=== PATIENT | female | born 1975 | race African-American/Black ===

== ENCOUNTER 2021-08-09 06:06 | Inpatient (IN) | payer OTHER ==
[~2021-08-09] VITALS: Ht 157.5 cm; Wt 70.0 kg
[~2021-08-09 06:06] MED LIST: CETI-36 PO; IRON65TA2 PO; LR 1,000 ML IV ONE; POTA20TA6 PO; TRIA37.5 PO; ceFAZolin SOD 2 GM in IV 1 EA IV ONE
[2021-08-09 07:15] LABS: BASO # 0.1 10^3/uL (0.0-0.2); EOS # 0.1 10^3/uL (0.0-0.5); EOS % 2.2 % (0.0-3.0); HEMATOCRIT 37.7 % (36.0-47.0); HEMOGLOBIN 12.1 g/dl (12.0-15.5); LYMPH # 2.2 10^3/uL (1.5-5.0); LYMPH % 43.2 % (24.0-44.0); MEAN CORPUSCULAR HEMOGLOBIN 25.5 pg (27.0-33.0); MEAN CORPUSCULAR HGB CONC 32.1 g/dl (32.0-36.5); MEAN CORPUSCULAR VOLUME 79.5 fl (80.0-96.0); MONO # 0.5 10^3/uL (0.0-0.8); MONO % 9.6 % (2.0-8.0); NEUTROPHILS # 2.2 10^3/uL (1.5-8.5); NEUTROPHILS % 43.8 % (36.0-66.0); PLATELET COUNT, AUTOMATED 429 10^3/uL (150-450); RED BLOOD COUNT 4.74 10^6/uL (4.00-5.40); WHITE BLOOD COUNT 5.1 10^3/uL (4.0-10.0)
[2021-08-09] MEDS ORDERED: BUPIVACAINE HCL 0.5% 30 ML VIAL As Ordered ONE (07:18)
[2021-08-09 07:21] LABS: ALBUMIN 3.7 GM/DL (3.2-5.2); ALT/SGPT 21 U/L (12-78); BILIRUBIN,TOTAL 0.4 MG/DL (0.2-1.0); BLOOD UREA NITROGEN 15 MG/DL (7-18); CALCIUM LEVEL 9.3 MG/DL (8.5-10.1); CARBON DIOXIDE LEVEL 28 MEQ/L (21-32); CHLORIDE LEVEL 105 MEQ/L (98-107); CREATININE FOR GFR 1.08 MG/DL (0.55-1.30); GLOMERULAR FILTRATION RATE > 60.0 (>58); GLUCOSE, FASTING 102 MG/DL (70-100); POTASSIUM SERUM 3.3 MEQ/L (3.5-5.1); SODIUM LEVEL 139 MEQ/L (136-145); TOTAL PROTEIN 7.6 GM/DL (6.4-8.2)
[2021-08-09] MEDS ORDERED: propofoL 200 MG/20 ML VIAL As Ordered ONE (07:22)
[2021-08-09] MEDS ORDERED: ROCURONIUM BROMIDE 50 MG/5 ML VIAL As Ordered ONE (07:22)
[2021-08-09] MEDS ORDERED: LIDOCAINE 2% 100MG/5ML SDV (FOR ANES.) As Ordered ONE (07:22)
[2021-08-09] MEDS ORDERED: dexameTHASONE 4 MG/ML 1ML VIAL (J1100 PER 1MG) As Ordered ONE (07:22)
[2021-08-09 07:23] LABS: HCG, SERUM QUALITATIVE NEGATIVE (NEGATIVE)
[2021-08-09] MEDS ORDERED: fentaNYL 250 MCG/5 ML INJECTION (J3010) As Ordered ONE (07:23)
[2021-08-09] MEDS ORDERED: MIDAZOLAM INJ 2MG/2ML VIAL (J2250 PER 1MG) As Ordered ONE (07:23)
[2021-08-09] MEDS ORDERED: LACRILUBE (AKWA TEARS) OPHTH OINT 3.5 GM As Ordered ONE (07:51)
[2021-08-09] MEDS ORDERED: LIDOCAINE 2% JELLY 5ML TUBE As Ordered ONE (07:58)
[2021-08-09] MEDS ORDERED: ACETAMINOPHEN 1000MG 100ML IV BTL (OFIRMEV) (J0131 PER 10MG) As Ordered ONE (08:23)
[2021-08-09] MEDS ORDERED: SUGAMMADEX SODIUM 500 MG/5 ML VIAL (BRIDION) As Ordered ONE (08:23)
[2021-08-09] MEDS ORDERED: HYDROmorphone HCL 2 MG/ML 1ML VIAL (J1170) As Ordered ONE (08:23)
[2021-08-09] MEDS ORDERED: ONDANSETRON 4MG/2ML VIAL As Ordered ONE (08:27)
[2021-08-09] MEDS ORDERED: ePHEDrine SULFATE 25 MG/5 ML(5MG/ML) SYRINGE As Ordered ONE (08:41)
[2021-08-09] MEDS ORDERED: PROMETHAZINE INJ 25 MG/ML VIAL (J2550) IV PRN (11:25)
[2021-08-09] MEDS ORDERED: ONDANSETRON 4 MG TAB PO PRN (11:30)
[2021-08-09] MEDS ORDERED: ACETAMINOPHEN 500 MG TAB PO PRN (11:30)
[2021-08-09] MEDS ORDERED: oxyCODONE 5MG TAB PO PRN ×2 (11:30)
[2021-08-09] MEDS ORDERED: MORPHINE 2 MG/ML 1ML VIAL (J2270) IV PRN (11:30)
[2021-08-09] MEDS ORDERED: SIMETHICONE 80MG CHEW TAB PO PRN (11:30)
[2021-08-09] MEDS ORDERED: ACETAMINOPHEN TAB 650MG DOSE (2X325MG) PO PRN (11:30)
[2021-08-09] MEDS: LR 1,000 ML IV SCH ×2 (12:07→23:02)
[2021-08-09] MEDS: KETOROLAC 30 MG/ML 1ML VIAL IV SCH ×3 (12:08→23:08)
[2021-08-09 13:50] VITALS: BP 153/89
--- NOTE | 2021-08-09 14:01 | ROOPDOC ---
[facility] Report Of Operation Report of Operation DATE OF PROCEDURE: 08/09/21 PREPROCEDURE DIAGNOSES: Heavy menstrual bleeding (menorrhagia), Multi-fibroid uterus POSTPROCEDURE DIAGNOSES: Same as above PROCEDURE PERFORMED: Diagnostic laparoscopy, total abdominal hysterectomy with bilateral salpingectomy, cystoscopy SURGEON: Anjum Murray DO, FACOG CLAM GROWER: Len Guerra DO ANESTHESIA: General ESTIMATED BLOOD LOSS: 500 ml IV FLUIDS: Pending URINE OUTPUT: 150 ml clear urine via mcgrath catheter ANTIBIOTICS: 2 grams Ancef before case start COMPLICATIONS: None FINDINGS: Normal appearing liver, gallbladder, gastric curve. Significantly enlarged multi-fibroid uterus. Severe bladder adhesions to lower uterine segment. Normal fallopian tubes and normal ovaries bilaterally. Cystoscopy at conclusion of hysterectomy demonstrated an intact bladder with no lesions, defects, sutures, or injury. Brisk efflux of urine seen from each ureteral orifice. SPECIMENS REMOVED: Uterus, cervix, bilateral fallopian tubes. DESCRIPTION OF PROCEDURE: The risks, benefits, indications, and alternatives of the procedure were reviewed with the patient and informed consent was obtained. The patient was taken to the operating room where general anesthesia was obtained without difficulty. The patient was then placed in the lithotomy position using Gel padded Andrea Stirrups. An exam under anesthesia was then performed and significant for a midline, mobile, 12 week sized uterus with multiple prominences consistent with fibroids. An abdominal and vaginal prep were then performed in the usual, sterile fashion and a mcgrath catheter was placed. Plan was to attempt with laparoscopy. A sterile speculum was inserted into the vagina and the cervix was visualized. An 0-vicryl stitch was placed at the anterior lip of the cervix for traction. The uterus was sounded to 10cm. A PrimeSense-[employer] uterine manipulator was then inserted as a means to manipulate the uterus. The speculum was removed. Gloves were then exchanged and attention was turned to the patient's abdomen where a 5mm skin incision was made in the inferior aspect of the umbilicus after injection of marcaine. A 5mm trocar and sleeve were then carefully introduced into the peritoneal cavity at a 90 degree angle while tenting up the abdominal wall. Intraperitoneal placement was confirmed under direct visualization and entry pressure was noted to be <5mmHg. Inspection of the structures immediately beneath the trocar entry site revealed no injury. A survey of the patient's abdomen revealed a normal liver, gallbladder, and gastric curve. The uterus was noted to be significantly enlarged with multiple fibroids extending anteriorly and laterally on both sides. A large fibroid was noted at the lower uterine segment, obstructing the full view of the bladder reflection. There was noted to be severe adhesions of the bladder to the lower uterine segment. The decision was made to proceed with laparotomy. The gas was turned off and all CO2 was removed from the patient's abdomen. The trocar was removed under direct visualization and there was no bleeding seen at the trocar site. The infraumbilical skin incision was then closed with 4-0 monocryl suture. A Pfannenstiel skin incision was then made and carried down to the underlying layer of fascia using bovie electrocautery. The fascia was entered with Bovie cautery and extended bilaterally with oconnor scissors. The underlying rectus fascia and muscle layers were then in the midline and the peritoneum was identified, grasped with two hemostats, and entered sharply using Metzenbaum scissors. The peritoneal incision was then extended superiorly and inferiorly using Bovie cautery. Manual and visual examination of the pelvis was notable for a enlarged multi- fibroid uterus with severe adhesions of the bladder to the lower uterine segment. The bowel was then packed from the operating field using moist laps. A Mobius self-retaining retractor was then placed into the abdominal cavity for pelvic exposure. Two clamps were placed across each utero-ovarian ligament immediately lateral to the uterus, and the uterus was elevated to the level of the incision. The fallopian tubes were first isolated and grasped with nadege clamps. Using the handheld Ligasure, the fallopian tubes were grasped, cauterized, and then transected. The fallopian tubes were then amputated at their connection to the uterus and sent off the field. Hemostasis was assured throughout this process. The round ligaments were bilaterally grasped near the uterine cornua. The round ligaments were then suture ligated with O-vicryl and transected using electrocautery bilaterally, allowing entry into the broad ligament. The anterior leaves of the broad ligament were then incised along the bladder reflection on both sides to the midline, and the posterior leaves of the broad ligament were incised 1-2 cm inferiorly. The pararectal spaces were then developed, and the ureters were identified bilaterally. A window was created in an avascular plane of the broad ligament, below and parallel to the IP ligament, and above the ureter. The utero-ovarian ligaments were then doubly clamped as close as possible to the uterine corpus, ligated, and transected with the handheld ligasure. The pedicles were reinspected and hemostasis noted. The bladder was then gently dissected off the lower uterine segment and cervix using a sponge stick and metzenbaum scissors until the endopelvic fascia was visualized. There was severe scarring at this location that added 20 minutes of dissection time to the case. The uterine arteries were then identified along the lateral aspects of the uterus at the level of the isthmus and skeletonized. The uterine arteries were then doubly clamped, ligated, and transected on both sides using the handheld ligasure. There was noted to be areas of aberrant vasculature on both secondary to the uterine fibroids which required additional sutures to achieve hemostasis. The cardinal ligaments were then clamped, transected, and suture ligated bilaterally. Finally, the uterosacral ligaments were clamped, transected, and suture ligated bilaterally. Hemostasis was noted. Given the size and bulk of the uterus, the decision was made to proceed with fundal amputation of the uterus. The uterine fundus was sharply amputated from the isthmus and cervix and the multi-lobular uterus was freed from the pelvis. The V-Care manipulator balloon was noted to be protruding through the cervix and this was deflated while maintaining sterility. The V-Care colpotomy ring encircled the remainder of the cervix. Using the colpotomy ring as a guide, the cervix was then incised circumferentially using bovie electrocautery. The V-Care uterine manipulator was then removed by the health information technician taking the cervical stump with it. The cuff was then grasped at the anterior and posterior sides with jaimie clamps. The lateral cuff angles were then closed with 0- vicryl suture and tagged. The remainder of the cuff was closed using O-vicryl suture in a running fashion with care given to incorporate the anterior pubocervical fascia and the posterior rectovaginal fascia. There was oozing at the cuff after closure that was controlled with figure of eight sutures of 0- vicryl. Inspection revealed hemostasis. Attention was then turned below for cystoscopy. The patient's mcgrath catheter was removed. The cystoscope was primed. The cystoscope was then advanced into the bladder. After distention of the bladder with warm saline, a systematic examination of the bladder was performed. There were no lesions, defects, sutures, or injury noted throughout inspection of the bladder. Brisk efflux of urine was seen from each ureteral orifice. The cystocope was then removed and the patient's mcgrath catheter was replaced. Gloves were then exchanged and attention was turned back to the abdomen. The abdomen was copiously irrigated with warm saline. All pedicles were carefully inspected and were noted to be hemostatic. The vaginal cuff was inspected again and was noted to be hemostatic. Tisseel fibrin sealant was then applied to the vaginal cuff and operative pedicles. All packing and instruments were then removed from the abdomen. The fascia was reapproximated using O-vicryl suture in a running fashion. The subcutaneous tissue was reapproximated using 3-0 vicryl suture in a running fashion. The skin was closed with 4-0 monocryl suture in a running fashion. Steri strips were then applied to the incision and an optifoam dressing was placed. A manual exam was then performed at case conclusion and the vagina demonstrated excellent suspension, elevation, and hemostasis. A vaginal sweep was performed and confirmed no retained foreign objects remained in the vagina. At the completion of the case the sponge, lap, needle, and instrument counts were correct x2. The patient was taken to the PACU in stable condition. ANJUM MURRAY DO Aug 09, 2021 14:01
[2021-08-09 14:18] VITALS: BP 147/87
[2021-08-09] MEDS: POTASSIUM CHLORIDE 10 MEQ SR TABLET PO SCH (14:36)
[2021-08-09 15:25] VITALS: BP 152/91
--- NOTE | 2021-08-09 15:34 | IPNPDOC ---
Text Note Date of Service The patient was seen on 08/09/21. NOTE Patient seen this afternoon. Ms. Way reports feeling well. She is resting in bed. Pain is manageable. She is tolerating a regular diet and denies any nausea. Vitals - VSS, afebrile, normal to mildly elevated BP, HR 80s-90s General - Sitting up in bed, AAOX3, NAD, pleasant and conversant Extremities - SCDs in place UO - appropriate Ms. Way is doing well s/p Dx Laparoscopy and then MISTY, BS, cysto ~4 hours ago. Will maintain mcgrath catheter until tomorrow AM due to extensive adhesiolysis required from bladder to lower uterine segment. Encourage ambulation this evening. Regular diet. Pain meds ordered. Plan for CBC, CMP tomorrow AM with mcgrath removal and DTV. Home meds ordered to start tomorrow AM. If BP severely elevated tonight she may require treatment. All patient questions answered. Pavel Maria, I+O VSPavel, I+O Laboratory Tests 08/09/21 06:29 Vital Signs Date Time Temp Pulse Resp B/P (MAP) Pulse Ox O2 Delivery O2 Flow Rate FiO2 08/09/21 14:18 98.0 86 18 147/87 (107) 100 Room Air 08/09/21 11:45 3.0 HAROON MURRAY DO Aug 09, 2021 15:34
[2021-08-09 16:58] VITALS: BP 149/90
[2021-08-09 18:04] VITALS: BP 154/72
[2021-08-09 22:00] VITALS: BP 150/78
[2021-08-10] VITALS (7 sets, daily range): BP systolic 130–142; BP diastolic 60–88
[2021-08-10] MEDS: LR 1,000 ML IV SCH (05:53)
[2021-08-10] MEDS: KETOROLAC 30 MG/ML 1ML VIAL IV SCH (05:54)
[2021-08-10 06:58] LABS: BASO % 0.2 % (0.0-1.0); HEMATOCRIT 28.7 % (36.0-47.0); LYMPH # 2.1 10^3/uL (1.5-5.0); LYMPH % 21.9 % (24.0-44.0); MEAN CORPUSCULAR HEMOGLOBIN 25.8 pg (27.0-33.0); MEAN CORPUSCULAR HGB CONC 32.4 g/dl (32.0-36.5); MEAN CORPUSCULAR VOLUME 79.7 fl (80.0-96.0); MONO # 0.7 10^3/uL (0.0-0.8); MONO % 7.6 % (2.0-8.0); NEUTROPHILS # 6.8 10^3/uL (1.5-8.5); NEUTROPHILS % 69.9 % (36.0-66.0); PLATELET COUNT, AUTOMATED 335 10^3/uL (150-450); WHITE BLOOD COUNT 9.8 10^3/uL (4.0-10.0)
[2021-08-10 07:06] LABS: HEMOGLOBIN 9.3 g/dl (12.0-15.5)
[2021-08-10 07:30] LABS: ALBUMIN 2.5 GM/DL (3.2-5.2); ALT/SGPT 17 U/L (12-78); BILIRUBIN,TOTAL 0.7 MG/DL (0.2-1.0); BLOOD UREA NITROGEN 9 MG/DL (7-18); CALCIUM LEVEL 8.2 MG/DL (8.5-10.1); CARBON DIOXIDE LEVEL 29 MEQ/L (21-32); CHLORIDE LEVEL 109 MEQ/L (98-107); CREATININE FOR GFR 0.81 MG/DL (0.55-1.30); GLOMERULAR FILTRATION RATE > 60.0 (>58); GLUCOSE, FASTING 96 MG/DL (70-100); POTASSIUM SERUM 3.2 MEQ/L (3.5-5.1); SODIUM LEVEL 142 MEQ/L (136-145); TOTAL PROTEIN 5.7 GM/DL (6.4-8.2)
[2021-08-10] MEDS: POTASSIUM CHLORIDE 10 MEQ SR TABLET PO SCH (09:39)
[2021-08-10] MEDS: DYAZIDE 37.5/25 CAP (TRIAM/HCTZ) PO SCH (09:39)
--- NOTE | 2021-08-10 09:43 | IPNPDOC ---
Text Note Date of Service The patient was seen on 08/10/21. NOTE Patient seen this morning. POD#1 s/p uncomplicated Dx L/S and then MISTY, BS, cysto for menorrhagia and multi-fibroid uterus. EBL ~500ml. No acute events overnight. Ms. Way reports feeling well this AM. Pain is manageable with current pain medication regimen. Has ambulated only a little so far. Is tolerating a regular diet. Denies any fevers/chills, SOB, chest pain. Mcgrath bag in place. Vitals - VSS, afebrile, normal to mildly elevated BP, non tachycardic General - Sitting up in bed, AAOX3, NAD, pleasant and conversant Abdomen - Soft, nondistended. Binder in place. Extremities - SCDs in place UO - Excellent, clear urine via mcgrath catheter Labs: Pre op CBC 5.1>12.1/37.7<429 ---> Post op CBC this AM 9.8>9.3/29.7<335 Pre op BMP 139/3.3--105/28--15/1.08<102 ---> Post op BMP this AM 142/3.2--109/29--9/0.81<[address] is doing well this AM. VSS, UO good, blood work stable. H/H drop consistent with EBL from surgery and fluid replacement. Plan for today to remove mcgrath catheter, ambulate, and monitor for DTV. Continue regular diet and monitor for symptoms of anemia. Transfuse if clinically indicated. Continue routine post op care. Anticipate DC home later today or tomorrow AM if meeting all criteria. All patient questions answered. Pavel Maria I+O Pavel CÁRDENAS I+O Laboratory Tests 08/10/21 06:41 Vital Signs Date Time Temp Pulse Resp B/P (MAP) Pulse Ox O2 Delivery O2 Flow Rate FiO2 08/10/21 06:00 98.7 94 16 142/86 (104) 99 Room Air 08/09/21 11:45 3.0 I&O- Last 24 Hours up to 6 AM 08/10/21 06:00 Intake Total 5260 ml Output Total 3150 ml Balance 2110 ml HAROON MURRAY DO Aug 10, 2021 09:43
[2021-08-10] MEDS ORDERED: LR 1,000 ML IV SCH (10:00)
[2021-08-10] MEDS: IBUPROFEN 800 MG TAB PO SCH ×2 (13:45→21:13)
--- NOTE | 2021-08-10 20:39 | DS.PDOC ---
Discharge Summary General Date of Admission Aug 09, 2021 at 06:06 Date of Discharge Aug 11, 2021 Discharge Summary HOSPITAL COURSE: Ms. Way is a 46 yo female who was admitted to [facility] on 09Aug2021 for a planned hysterectomy. She underwent a diagnostic laparoscopy and then open abdominal hysterectomy with bilateral salpingectomy and cystoscopy on that same day. Her post operative course was unremarkable. On her day of discharge she was meeting all discharge criteria. She was ambulating, voiding, tolerating a regular diet, passing gas, and her pain was well controlled with PO pain medications. DISCHARGE MEDICATIONS: Please see below. ALLERGIES: Please see below. PHYSICAL EXAMINATION ON DISCHARGE: VITAL SIGNS: Please see below. GENERAL: AAOX3, sitting on a chair, NAD, pleasant and conversant CARDIOVASCULAR EXAMINATION: RRR ABDOMINAL EXAMINATION: Soft, nondistended. Incision examined. Optifoam in place over incision. Old dried blood at right lateral edge. Otherwise clean/dry/intact. No tenderness to palpation. EXTREMITIES: No edema PSYCHIATRIC EXAMINATION: Affect appropriate LABORATORY DATA: Please see below. ACTIVITY: Pelvic rest, no heavy lifting for 6 weeks DIET: Regular DISCHARGE PLAN: DC home DISPOSITION: DC home on 11Aug2021 DISCHARGE INSTRUCTIONS: Postoperatively, you should expect significant abdominal soreness. We will provide oral pain medications, typically an anti-inflammatory (motrin and tylenol) and an oral narcotic (oxycodone). It is recommended to take the anti- inflammatory medication three times daily, using the narcotic medication as need ed in addition. Sometimes, narcotic medications can cause constipation, and we recommend using a stool softener (Miralax), drinking plenty of water, increasing the fiber in your diet, and drinking prune juice if constipation becomes a significant issue. Dressings: Your abdominal incision is closed with absorbable stitches and dressed with steri-strips and an optifoam dressing. Remove the optifoam dressing (easy to do while in the shower) 5 days postoperatively. Remove the steri-strips in one week postoperatively. You may shower on the day following surgery. It is normal to have some pain at the incisions that is sharp. Signs of infection at the incision include pain, redness, swelling and drainage of pus from the incision. Precautions: Please contact the [facility] clinic during business hours, the [facility] provider computer numeric control setter after hours, or report to the Emergency Room after hours for any of the following symptoms: * Fever (temperature > 101F) * Significant pain not controlled with oral pain medications * Significant nausea and vomiting with inability to tolerate any food or medication * Significant redness of the incisions or drainage from the incisions Return to normal: You should be able to resume normal activities and exercise within 6-8 weeks. You may notice more soreness with abdominal exercises, and this is to be expected. Avoid heavy lifting greater than 10 pounds until 6 weeks after surgery. Nothing in the vagina (no tampons, intercourse, or douching) for 6-8wks. You may resume sexual activity 6-8 weeks after surgery when cleared by your surgeon. ITEMS TO FOLLOWUP ON ON OUTPATIENT: 1. 2 week post op incision check in the [facility] office. DISCHARGE CONDITION: Stable. TIME SPENT ON DISCHARGE: Greater than 20 minutes. Haroon Shah DO, FACOG Vital Signs/I&Os Vital Signs Date Time Temp Pulse Resp B/P (MAP) Pulse Ox O2 Delivery O2 Flow Rate FiO2 08/10/21 16:00 98.4 89 17 138/68 (91) 99 Room Air 08/09/21 11:45 3.0 I&O- Last 24 Hours up to 6 AM 08/10/21 06:00 Intake Total 5260 ml Output Total 3150 ml Balance 2110 ml Laboratory Data Labs 24H Laboratory Tests 2 08/10/21 06:41: Immature Granulocyte % (Auto) 0.4, Neutrophils (%) (Auto) 69.9H, Lymphocytes (%) (Auto) 21.9L, Monocytes (%) (Auto) 7.6, Eosinophils (%) (Auto) 0.0, Basophils (%) (Auto) 0.2, Neutrophils # (Auto) 6.8, Lymphocytes # (Auto) 2.1, Monocytes # (Auto) 0.7, Eosinophils # (Auto) 0.0, Basophils # (Auto) 0.0, Nucleated Red Blood Cells % (auto) 0.0, Anion Gap 4L, Glomerular Filtration Rate > 60.0, Calcium Level 8.2L, Total Bilirubin 0.7#, Aspartate Amino Transf (AST/SGOT) 20, Alanine Aminotransferase (ALT/SGPT) 17, Alkaline Phosphatase 43L, Total Protein 5.7#L, Albumin 2.5#L, Albumin/Globulin Ratio 0.8L CBC/BMP Laboratory Tests 08/10/21 06:41 Discharge Medications Scheduled Cetirizine HCl (ZyrTEC) 10 Mg Tab.rapdis, 10 MG PO DAILY, (Reported) Ferrous Sulfate (Iron) 325 Mg Tablet, 325 MG PO BID, (Reported) Potassium Chloride (Potassium Chloride) 20 Meq Tab.er.prt, 20 MEQ PO DAILY, (Reported) Triamterene/Hydrochlorothiazid (Triamterene-Hctz 37.5-25 mg Tb) 1 Each Tablet, 2 TAB PO DAILY, (Reported) Scheduled PRN Acetaminophen (Acetaminophen) 500 Mg Tablet, 1,000 MG PO Q6HP PRN for PAIN LEVEL 6-10 Acetaminophen (Acetaminophen) 325 Mg Tablet, 650 MG PO Q4HP PRN for PAIN LEVEL 1-5 Oxycodone HCl (Oxycodone HCl) 5 Mg Tablet, 10 MG PO Q6H PRN for SEVERE PAIN (PS 8-10) Allergies Coded Allergies: shellfish derived (Verified Allergy, Severe, FACIAL SWELLING, 08/09/21) iodine (Verified Allergy, Unknown, 08/09/21) HAROON SHAH DO Aug 10, 2021 20:39
--- NOTE | 2021-08-10 22:23 | ECGEPIP ---
[facility] Test Date: 2021-08-09 Pat Name: UMESH DUKE Department: Room: [place] [address] Gender: Female Cafe Cook: erik : 1975 Requested By: HAROON Razo Order Number: [id number] Reading MD: Ed Melendez Measurements Intervals [place] Rate: 100 P: 79 WI: 154 QRS: 40 QRSD: 72 T: 22 QT: 354 QTc: 456 Interpretive Statements Poor data quality, interpretation may be adversely affected Normal sinus rhythm Possible Left atrial enlargement Nonspecific ST abnormality No prior tracing in the system Electronically Signed on 08-10-2021 22:23:42 EDT by Ed Melendez
[2021-08-11] MEDS: IBUPROFEN 800 MG TAB PO SCH (05:24)
[2021-08-11 06:00] VITALS: BP 116/74
[2021-08-11] MEDS ORDERED: ACET-683 PO (07:25)
[2021-08-11] MEDS ORDERED: ACET1TAB55 PO (07:25)
[2021-08-11] MEDS ORDERED: OXYC-517 PO (07:25)
[2021-08-11] MEDS: POTASSIUM CHLORIDE 10 MEQ SR TABLET PO SCH (09:00)
[2021-08-11] MEDS: DYAZIDE 37.5/25 CAP (TRIAM/HCTZ) PO SCH (09:00)
== END 2021-08-11 09:51 | disposition home or self-care (01) | DRG 743 ==
LOC: M OR 06:06 → M MSPAV 14:07
PROVIDERS: ADMIT Obstetrics & Gynecology; ATTEND Obstetrics & Gynecology
PROC: 0UTC0ZZ Resection of Cervix, Open Approach (ICD-10-PCS; 2021-08-09)
PROC: 0UT70ZZ Resection of Bilateral Fallopian Tubes, Open Approach (ICD-10-PCS; 2021-08-09)
PROC: 0WJG4ZZ Inspection of Peritoneal Cavity, Percutaneous Endoscopic Approach (ICD-10-PCS; 2021-08-09)
PROC: 0TJB8ZZ Inspection of Bladder, Via Natural or Artificial Opening Endoscopic (ICD-10-PCS; 2021-08-09)
PROC: 0UT90ZZ Resection of Uterus, Open Approach (ICD-10-PCS; principal; 2021-08-09 07:30)
DX: D25.9 Leiomyoma of uterus, unspecified (principal); N92.0 Excessive and frequent menstruation with regular cycle; I10 Essential (primary) hypertension; D64.9 Anemia, unspecified; Z53.31 Laparoscopic surgical procedure converted to open procedure

== ENCOUNTER → 2022-01-10 | Outpatient (CLI) | payer OTHER ==
[~2022-01-10] MED LIST changes: +ACET-683 PO; +ACET1TAB55 PO; -LR 1,000 ML IV ONE; +OXYC-517 PO; +POTA-151 PO; -POTA20TA6 PO; -ceFAZolin SOD 2 GM in IV 1 EA IV ONE
== END ==
LOC: M WHC 16:03
PROVIDERS: ATTEND Student in an Organized Health Care Education/Training Program
DX: R92.2 Inconclusive mammogram (principal)

== ENCOUNTER → 2022-02-08 | Outpatient (CLI) | payer OTHER | LOC: M WHC 14:37 | PROVIDERS: ATTEND Student in an Organized Health Care Education/Training Program | DX: Z12.31 Encounter for screening mammogram for malignant neoplasm of breast (principal); N60.01 Solitary cyst of right breast | CPT/HCPCS: 76642; 77065; G0279 ==

== ENCOUNTER → 2022-04-18 | Outpatient (CLI) | payer OTHER ==
[~2022-04-18] MED LIST changes: +MAXI0.1S3 OP; +VITA100T59 PO
[2022-04-18 09:09] VITALS: BP 142/86
== END ==
LOC: M WHCPRO 07:36
PROVIDERS: ATTEND Surgery
DX: R92.8 Other abnormal and inconclusive findings on diagnostic imaging of breast (principal); N63.12 Unspecified lump in the right breast, upper inner quadrant
CPT/HCPCS: 10005; 77065; 88173; G0279